=== PATIENT | male | born 1995 | race Caucasian/White ===

== ENCOUNTER 2017-05-24 18:40 | Inpatient (IN) | payer OTHER ==
[~2017-05-24] VITALS: Ht 182.9 cm; Wt 81.6 kg
--- NOTE | 2017-05-24 22:30 | NUR ---
Pre admission note Pt seen in intake office. Pt appears mildly intoxicated but in stable condition. V/S WNL. Policies on medication disposal explained to and understood by patient. No s/s of distress noted at this time. Respirations even and unlabored. Will continue to monitor. Will admit to unit.
[2017-05-24 22:43] VITALS: BP 138/78
--- NOTE | 2017-05-24 22:45 | NUR ---
Admission note Pt is a 22 yo male, A+OX4, presenting to [facility] for Opiate/Benzo dependence. Pt has NKA, is on Full Code status, and on regular diet. Pt is 6'0" in height and 180 LBS in weight. Pt has no medical HX to report. Pt has no family HX to report. Pt has a Primary care provider named Dr. Lai. Pt has been smoking Heroin for 2 years (10 months currently), has reached a rate of 1gm/daily, and last dose was 1gm on 05-24-17 @2000. Pt has been taking Xanax PO for 8 years (10 months currently), has reached a level of 4mg/daily, and last dose was 4mg on 05-21-17. Pt is not taking any home medications. Pt has HX of previous Detox/Rehab for 5 months total in [place], [place] from May 2015- 2015. the patients last time sober was from May 2016- August 2016. Pt has been a cigarette smoker for 8 years and has reached a level of 10/daily. Pt appears mildly intoxicated upon admission but in stable condition. V/S WNL. No s/s of distress noted at this time. Respirations even and unlabored. Will continue to monitor.
[2017-05-24 23:11] LABS: *AMPHETAMINE, URINE NEGATIVE (NEGATIVE); *BARBITURATE, URINE NEGATIVE (NEGATIVE); *CANNABINOID, URINE NEGATIVE (NEGATIVE); *COCCAINE, URINE NEGATIVE (NEGATIVE); *OPIATE, URINE POSITIVE (NEGATIVE); *PHENCYCLIDINE SCREEN,URINE NEGATIVE (NEGATIVE)
[2017-05-24 23:46] LABS: BASOPHILS # (AUTO) 0.3 K/uL (0.0-8.0); BASOPHILS % (AUTO) 1.7 % (0.0-2.0); EOSINOPHILS # (AUTO) 0.1 K/uL (0.0-0.7); EOSINOPHILS % (AUTO) 0.5 % (0.0-7.0); HEMATOCRIT 48.9 % (40-50); HEMOGLOBIN 16.7 G/DL (14.0-18.0); LYMPHOCYTES # (AUTO) 2.3 K/UL (0.8-4.8); LYMPHOCYTES % (AUTO) 14.4 % (20.5-51.5); MEAN CORPUSCULAR HEMOGLOBIN 30.9 UUG (27.0-31.0); MEAN CORPUSCULAR HGB CONC 34 g/dL (32.0-37.0); MEAN CORPUSCULAR VOLUME 90.4 FL (82.0-92.0); MONOCYTES # (AUTO) 1.2 K/UL (0.1-1.30); MONOCYTES % (AUTO) 7.6 % (0.0-11.0); NEUTROPHILS # (AUTO) 11.8 K/UL (1.8-8.9); NEUTROPHILS % (AUTO) 75.8 % (38.5-71.5); PLATELET COUNT (AUTO) 341 K/UL (150-450); RED BLOOD CELL COUNT(AUTO) 5.41 MIL/UL (4.7-6.1); WHITE BLOOD COUNT (AUTO) 15.6 K/UL (4.0-11.2)
[2017-05-24 23:53] LABS: ALANINE AMINOTRANSFERASE 32 U/L (16-63); ALKALINE PHOSPHATASE 91 U/L (50-136); AMYLASE 80 U/L (25-115); ASPARTATE AMINOTRANSFERASE 18 U/L (15-37); BILIRUBIN,TOTAL 0.5 mg/dL (0.2-1.0); CARBON DIOXIDE 31 mmol/L (21-32); CHLORIDE 101 mmol/L (98-107); CREATININE 1.4 mg/dL (0.6-1.3); GLUCOSE 121 mg/dL (74-106); LIPASE 117 U/L (73-393); POTASSIUM 3.6 mmol/L (3.5-5.1); TOTAL PROTEIN, SERUM 8.4 g/dL (6.4-8.2); UREA NITROGEN, BLOOD 15 mg/dL (7-18)
[2017-05-25 00:04] LABS: THYROID STIMULATING HORMONE 0.667 mIU/mL (0.358-3.740)
[2017-05-25 00:12] LABS: ETHANOL < 3 MG/DL (0-0)
[2017-05-25 00:56] VITALS: BP 132/78
[2017-05-25 04:16] VITALS: BP 125/74
--- NOTE | 2017-05-25 06:58 | NUR ---
End of shift note Pt is a 22 yo male, A+OX4, presenting to [facility] for Opiate/Benzo dependence. Pt has NKA, is on Full Code status, and on Regular diet. Pt is on Fall and Seizure precautions. Pt denies any medical HX. Pt is awaiting evaluation from MD in AM for taper medications. Pt slept for a total of 1 HR. Last COWS: 2 and Last CIWA: 2 @0400. No s/s of distress noted at this time. Respirations even and unlabored. Will endorse to day shift nurse.
[2017-05-25 08:00] VITALS: BP 124/70
--- NOTE | 2017-05-25 08:00 | NUR ---
START OF SHIFT: RECEIVED PT A/O X 4.HE IS LAYING IN BED. HE C/O SEVERE ANXIETY AND SWEATS AND STATES HE FEELS LIKE HE IS CRAWLING OUT OF HIS SKIN.CIWA 16. 2MG ATIVAN PO PRN ADMINISTERED. MADE AWARE. ENCOURAGED INCREASED FLUIDS. WILL MONITOR EFFECTIVENESS OF PRN ATIVAN. PT STATES HE WOULD LIKE TO WAIT ON SUBUTEX. COWS 10. WILL CONTINUE TO MONITOR AND OFFER SUPPORT.
--- NOTE | 2017-05-25 09:00 | NUR ---
CIWA 5 . PRN ATIVAN WAS EFFECTIVE. WILL CONTINUE TO MONITOR.
[2017-05-25 12:00] VITALS: BP 129/75
--- NOTE | 2017-05-25 12:15 | NUR ---
PRN 4 MG SUBUTEX SL GIVEN FOR COWS 14. HE REPORTS SWEATS,CHILLS, STOMACH CRAMPS ,ANXIETY,BODY ACHES AND RESTLESSNESS. WILL MONITOR EFFECTIVENESS.
--- NOTE | 2017-05-25 12:45 | NUR ---
PT STATES THE SUBUTEX WAS EFFECTIVE. COWS NOW 9. HE STATES S/S OF W/D HAVE LESSENED. WILL CONTINUE TO MONITOR AND OFFER SUPPORT.
--- NOTE | 2017-05-25 13:45 | NUR ---
1300 MEDS HELD PT IS ASLEEP. RESPIRATIONS EVEN AND UNLABORED.
--- NOTE | 2017-05-25 14:43 | NUR ---
Therapist Visited client in bedroom and encouraged client to come into group today. Client agreed to attend group.
[2017-05-25 16:00] VITALS: BP 135/65
--- NOTE | 2017-05-25 18:55 | NUR ---
END OF SHIFT: PT STARTED ON ATIVAN SUBUTEX TAPER. LAST COWS 8 CIWA 5. HE RESTED AND INCREASED FLUIDS SUGGESTED TODAY. HE C/O BODY ACHES,CHILLS SWEATS AND ANXIETY AND STATES DETOX MEDS ARE EFFECTIVE. PT IS COMPLIANT WITH MEDS. WILL PASS SHIFT REPORT TO ONCOMING NIGHT NURSE.
[2017-05-25 20:00] VITALS: BP 127/65
--- NOTE | 2017-05-25 20:00 | NUR ---
1999 Patient received awake, alert and ambulating to his room # [id number] from [facility] in recreation room. Gait is brisk and steady. Patient responds to nurse's greeting and introduction with a " Hi, what's your name again?" Patient is oriented to person, place, day, date, time and his personal situation. Patient denies any pain or other discomfort at this time and he states that he has been eating his Regular diet meal trays as best he can and he continues to take various fluids ad flavia with no gastric issues thus far. Patient attended [facility] group this evening. Vital signs are: 98.6-97-16 127/65, O2 Sat 99%, COWS 4, CIWA 3. Patient was admitted on 05/24/17 for Heroin and Xanax withdrawal and he is currently on a 5-Day Ativan medication taper and a 5-Day Subutex medication taper, both of which he is apparently tolerating well thus far. Patient is cooperative and verbally appropriate when interacting with nurse, though his overall mood/affect is quiet and withdrawn. No requests for anything voiced at this time. Bed is locked and in lowest position, bed rails are up X 2 and call light on patient's bed.
--- NOTE | 2017-05-25 21:05 | NUR ---
PRN MEDICATION: Prn Benadryl 50 mg p.o. given per request for sleep medication.
--- NOTE | 2017-05-25 21:06 | NUR ---
PRN MEDICATION: Prn Vistaril 25 mg p.o. given per c/o anxiety.
--- NOTE | 2017-05-25 22:06 | NUR ---
REASSESSMENT PRN MEDICATIONS: Patient is sleeping comfortably with eyes closed and respirations quiet, even, unlabored at 12.
--- NOTE | 2017-05-26 | NUR ---
Patient requests to not be awakened for V/S, COWS, CIWA to be done at this time.
--- NOTE | 2017-05-26 04:00 | NUR ---
Patient sleeping soundly and refused to be awakened for V/S, COWS, CIWA to be done at this time
--- NOTE | 2017-05-26 06:30 | NUR ---
0630 Patient slept a total of 6.5 hours and he had 3 voids and no stools. Total intake was 1,855l p.o. Prn medications given noted separately per floor protocol. V/SS afebrile, last COWS 4, last CIWA 3. Patient is presently sleeping comfortably in stable condition with eyes closed and respirations unlabored at 12.
[2017-05-26 07:06] LABS: HEPATITIS B SURFACE AG Negative (Negative)
--- NOTE | 2017-05-26 07:55 | NUR ---
BEGINNING OF SHIFT Patient endorsement report received from shift superintendent caustic cresylate nurse, all pertinent information discussed. Patient is a 22 year old male with admitting Dx:Opiate/BZO dependence. Patient continues on a 5 day Ativan taper and 5 day Subutex taper as ordered and is scheduled to begin day: 2 of taper, will monitor closely. As per shift superintendent caustic cresylate patient received PRN: Benadryl, and Vistaril. Patient slept for 7 hours. Patient received awake, alert and oriented x4, Educated patient regarding plan of care for the day and medication regimen with good verbal understanding. will continue to monitor closely. Safety measures in place. call light kept with in reach, will continue to monitor closely.
[2017-05-26 08:18] VITALS: BP 118/73
[2017-05-26 14:09] VITALS: BP 112/71
[2017-05-26 17:14] VITALS: BP 135/92
--- NOTE | 2017-05-26 19:03 | NUR ---
END OF SHIFT Patient alert and oriented x4, vital signs were stable during shift. Patient compliant with therapeutic plan of care during shift. Patient with admitting Dx: opiate/BZO dependence. Patient continues on day 2 of Ativan and Subutex taper as ordered, well tolerate,d no ASE noted. 0900 assessment patient presented with: c/o chills, restlessness, mild bone and joint aches, fine tremors, irritable, anxiety, goosebump, and barely sweating with cow score of: 11 and ciwas score of: 8; 1300 assessment patient presented with: c/o chills, mild bone and joint aches, fine tremors, irritability, anxiety, with cow score of: 6 and ciwa score of: 6; 1700 assessment patient presented with: heart rate: 103, c/o chills, mild bone and joint aches, fine tremors, irritability, anxiety, with cow score of: 7 and ciwa score of: 6. During shift patient received no PRNs. Patient compliant with plan of care. encouraged to attend group therapies/sessions to learn new coping skills to prevent relapse, noted attending and participating. Patient denies SI/HI. Patient encouraged adequate PO fluid intake as tolerated. Safety measures in place. call light kept with in reach, safety measures in place. will continue to monitor closely. patient endorsed to glass mould cleaner nurse, all pertinent information discussed.
[2017-05-26 20:00] VITALS: BP 128/90
--- NOTE | 2017-05-26 20:00 | NUR ---
1999 Patient received awake, alert and just returning to his room #[id number] from [employer] group in recreation room. Upon seeing nurse, patient states, " Hey, you my nurse again tonight?" Patient is oriented to person, place, day, date, time and his personal situation. Patient denies feeling any pain or other discomforts and he states that he continues to attend [employer] groups, eat his regular diet meal trays, take " lots of vitamin water" with no gastric issues, and follow his therapeutic plan as best he can. Vital signs are: 98.3-100-16 128/90, O2 Sat 99%, COWS 5 , CIWA 4 . No requests for anything voiced at this time. Patient was admitted on 05/24/17 for Heroin and Xanax withdrawal and he is currently on both, a 5-Day Ativan medication taper and a 5-Day Subutex medication taper, which he is apparently tolerating well thus far. Patient is cooperative and verbally appropriate when interacting with nurse though overall mood/affect is quiet/flat. Bed is locked and in lowest position, bed rails are up X 2 and call light on patient's bed within his easy reach.
--- NOTE | 2017-05-27 | NUR ---
Patient is awake and downstairs on hospital patio for smoke break. Unable to do V/S, CIWA assess at this time.
[2017-05-27 04:00] VITALS: BP 118/85
--- NOTE | 2017-05-27 04:00 | NUR ---
V/S: 98-92-14 118/85, O2 Sat 99%. Patient too sleepy to do [place], CIMARTHA at this time.
--- NOTE | 2017-05-27 06:30 | NUR ---
0630 Patient slept a total of 5 hours and he had 3 voids and 1 stools. Total intake was 1,047 ml p.o. No prn medications given this shift. V/SS afebrile, last COWS 5 and CIWA 4. Patient presently resting comfortably in stable condition with eyes closed and respirations unlabored at 14.
--- NOTE | 2017-05-27 07:39 | NUR ---
BEGINNING OF SHIFT Patient endorsement report received from public works supervisor nurse, all pertinent information discussed. Patient is a 22 year old male with admitting Dx:Opiate/BZO dependence. Patient continues on a 5 day Ativan taper and 5 day Subutex taper as ordered and is scheduled to begin day: 3 of taper, will monitor closely. As per public works supervisor patient received no PRNs. Patient slept for 5 hours. Patient received awake, alert and oriented x4, Educated patient regarding plan of care for the day and medication regimen with good verbal understanding. will continue to monitor closely. Safety measures in place. call light kept with in reach, will continue to monitor closely.
[2017-05-27 08:16] VITALS: BP 123/71
[2017-05-27 12:31] VITALS: BP 127/84
--- NOTE | 2017-05-27 14:06 | NUR ---
Therapist encouraged client to attend group today to meet others and engage in his recovery. Client agreed to attend group.
--- NOTE | 2017-05-27 14:16 | NUR ---
PRN VISTARIL Patient reports increase in anxiety, provided patient with non pharmacological interventions with no relied, administered Vistaril PO as ordered, will monitor effectiveness of medication.
--- NOTE | 2017-05-27 15:16 | NUR ---
VISTARIL REASSESSMENT Patient reports medication effective feels less anxious, medication effective, will continue to monitor.
[2017-05-27 17:16] VITALS: BP 125/63
--- NOTE | 2017-05-27 18:50 | NUR ---
END OF SHIFT Patient alert and oriented x4, vital signs were stable during shift. Patient compliant with therapeutic plan of care during shift. Patient with admitting Dx: opiate/BZO dependence. Patient continues on day 3 of Ativan and Subutex taper as ordered, well tolerate,d no ASE noted. 0900 assessment patient presented with: c/o chills, dilated pupils, mild bone and joint aches, tremors that can be felt but not seen, yawning, mild anxiety and barely sweating with cow score of: 6 and ciwa score of: 3; 1300 assessment patient presented with: heart rate of 96, c/o chills, mild bone and joint aches, tremors that can be felt but not seen, and mild anxiety with cow score of: 5 and ciwa score of: 3; 1700 assessment patient presented with: heart rate of 102, c/o chills, mild bone and joint aches, tremors that can be felt but not seen, mild anxiety with cow score of: 6 and ciwa score of: 3. During shift patient received PRN: Vistaril as ordered, medication effective one hour post administration. Patient compliant with plan of care. encouraged to attend group therapies/sessions to learn new coping skills to prevent relapse, noted attending and participating. Patient denies SI/HI. Patient encouraged adequate PO fluid intake as tolerated. Safety measures in place. call light kept with in reach, safety measures in place. will continue to monitor closely. patient endorsed to night auditor nurse, all pertinent information discussed.
[2017-05-27 20:00] VITALS: BP 134/86
--- NOTE | 2017-05-27 20:05 | NUR ---
Start of Shift Notes Received 23 y/o male px. Admitted on 05/24/2017 for opiate/BZO dependence. Patient alert and oriented x4. Patient denies SI/HI. Px on Full Code, NKA, on regular diet. During rounds at 1930, px reported of heightened anxiety and wants to have petra sleep tonight. Encouraged adequate PO fluid intake as tolerated. Safety measures in place. Call light kept within reach, safety measures in place. We'll continue to monitor.
--- NOTE | 2017-05-27 20:30 | NUR ---
PRN Vistaril Px requested pill to help him sleep. Px verbalized that his anxiety is heightened and he had only 3 hrs sleep last night and he has been sleep deprived. Vistaril 25mg/tab, 1 tab given PO as PRN med. We'll continue to monitor.
[2017-05-28] VITALS: BP 127/79
--- NOTE | 2017-05-28 | NUR ---
COWS and CIWA deferred COWS and CIWA deferred due to the px is sleeping, to assess if the px is awake per doctor's order. Respirations are even and unlabored. We'll continue to monitor.
[2017-05-28 04:00] VITALS: BP 127/80
--- NOTE | 2017-05-28 07:14 | NUR ---
End of Shift Notes 23 y/o male px. Admitted on 05/24/2017 for opiate/BZO dependence. Patient alert and oriented x4, vital signs were stable during shift. Patient denies SI/HI. Px on Full Code, NKA, on regular diet. Px on 5 day Ativan and Subutex taper. During rounds at 1930, px reported of heightened anxiety and wants to have petra sleep tonight. Vistaril 25mg/tab, 1 tab given PO as PRN med. Encouraged adequate PO fluid intake as tolerated. Oral intake of 1,600 ml, voided 2x, no BM. Slept for 7 hrs. Last COWS 6, CIWA 4. Safety measures in place. Call light kept within reach. We'll continue to monitor.
--- NOTE | 2017-05-28 07:22 | NUR ---
BEGINNING OF SHIFT Patient endorsement report received from underwriter nurse, all pertinent information discussed. Patient is a 22 year old male with admitting Dx:Opiate/BZO dependence. Patient continues on a 5 day Ativan taper and 5 day Subutex taper as ordered and is scheduled to begin day: 4 of taper, will monitor closely. As per underwriter patient received PRN:Vistaril, medication effective as per underwriter, patient slept for 7 hours. patient with last cow score of; 6 and last ciwa score of: 4. Patient received awake, alert and oriented x4, Educated patient regarding plan of care for the day and medication regimen with good verbal understanding. will continue to monitor closely. Safety measures in place. call light kept with in reach, will continue to monitor closely.
[2017-05-28 08:24] VITALS: BP 121/85
[2017-05-28 12:30] VITALS: BP 138/80
--- NOTE | 2017-05-28 12:45 | NUR ---
ONE TIME ATIVAN Per MD orders patient to receive one time dose of Ativan 1 mg Po, medication administered as ordered patient presented with: tremors that can be felt but not seen, moderate anxiety, agitated with ciwa score of: 8, will monitor effectiveness of medication.
[2017-05-28 13:07] LABS: EOSINOPHILS # (AUTO) 0.1 K/uL (0.0-0.7); HEMATOCRIT 44.4 % (36.7-47.1); LYMPHOCYTES # (AUTO) 1.8 K/uL (20.0-40.0); NEUTROPHILS # (AUTO) 7.8 K/uL (1.8-8.9)
[2017-05-28 13:18] LABS: BASOPHILS % (AUTO) 0.5 % (0.0-2.0); EOSINOPHILS % (AUTO) 1.1 % (0.0-7.0); HEMOGLOBIN 15.5 g/dL (12.5-16.3); LYMPHOCYTES % (AUTO) 16.9 % (20.5-51.5); MEAN CORPUSCULAR HEMOGLOBIN 31.2 uug (23.8-33.4); MEAN CORPUSCULAR HGB CONC 35 g/dL (32.5-36.3); MEAN CORPUSCULAR VOLUME 89.6 fL (73.0-96.2); MONOCYTES % (AUTO) 9.7 % (0.0-11.0); NEUTROPHILS % (AUTO) 71.8 % (38.5-71.5); PLATELET COUNT (AUTO) 282 K/uL (152-348); RED BLOOD CELL COUNT(AUTO) 4.95 MIL/uL (4.06-5.63)
[2017-05-28 13:21] LABS: WHITE BLOOD COUNT (AUTO) 10.8 K/uL (3.6-10.2)
[2017-05-28 13:41] LABS: CREATININE 1.3 mg/dL (0.6-1.3); POTASSIUM 3.7 mmol/L (3.5-5.1)
--- NOTE | 2017-05-28 13:45 | NUR ---
ATIVAN REASSESSMENT patient reports medication effective, reassessment completed noted with, tremors that can be felt but not seen, mild anxiety and mild agitation with ciwa score of: 5, will continue to monitor.
[2017-05-28 16:00] VITALS: BP 120/79
--- NOTE | 2017-05-28 17:13 | NUR ---
Client was prompted by therapist to attend daily group session. Client related that he would attend.
--- NOTE | 2017-05-28 17:50 | NUR ---
PRN CLONIDINE/VISTARIL Patient c/o increase anxiety, and feeling agitated patient provided with non pharmacological interventions with no relief, patient administered clonidine as ordered and Vistaril as ordered. bp at time of administration: 138/80 heart rate of: 95. Will continue to monitor for effectiveness.
--- NOTE | 2017-05-28 18:50 | NUR ---
CLONIDINE/VISTARIL REASSESSMENT Patient reports medication effective, feels less anxious and less agitated, vital signs WNL. medication effective, will continue to monitor.
--- NOTE | 2017-05-28 19:03 | NUR ---
END OF SHIFT Patient alert and oriented x4, vital signs were stable during shift. Patient compliant with therapeutic plan of care during shift. Patient with admitting Dx: opiate/BZO dependence. Patient continues on day 4 of Ativan and Subutex taper as ordered, well tolerate,d no ASE noted. During shift patient received a one time dose of Ativan 1mg Po as ordered by MD at 1245, well tolerated, no ASE noted. 0900 assessment patient presented with: heart rate of 81, c/o chills, mild bone and joint aches, tremors that can be felt but not seen, mild anxiety with cow score of: 5; 1300 assessment patient presented with: tremors that can be felt but not seen, moderate anxiety, agitated, heart rate of 93, c/o chills, mild bone and joint aches, tremors that can be felt but not seen, irritable, and anxiety with cow score of: 8; 1700 assessment patient presented with: tremors that can be felt but not seen, moderate anxiety, agitated, heart rate of 108, c/o chills, mild bone and joint aches, tremors that can be felt but not seen, irritable, and anxiety with cow score of: 7 and ciwa score of: 8. During shift patient received PRN: Vistaril and clonidine as ordered, medication effective one hour post administration. Patient compliant with plan of care. encouraged to attend group therapies/sessions to learn new coping skills to prevent relapse, noted attending and participating. Patient denies SI/HI. Patient encouraged adequate PO fluid intake as tolerated. Safety measures in place. call light kept with in reach, safety measures in place. will continue to monitor closely. patient endorsed to welder 2nd shift nurse, all pertinent information discussed.
[2017-05-28 20:00] VITALS: BP 94/65
--- NOTE | 2017-05-28 20:00 | NUR ---
Start of Shift Patient is a 22-year old, male, admitted for Opiate and Benzo dependence. Patient with NKA, is Full Code and on Regular Diet. With no reported medical history. Pt placed on Ativan and Subutex tapers, both ending on 05/29/17. Pt is AAOx3 and with no anxiety at this time. No SOB noted, not in respi distress. Pt is ambulatory with steady gait, with no skin issues. Fall, universal, seizure and safety prec in place. Call light within reach. Latest COWS=5, CIWA=4. Will continue to monitor.
[2017-05-29] VITALS: BP_SYST 105; BP_SYST 122; BP_DIAS 71; BP_DIAS 80
--- NOTE | 2017-05-29 04:10 | NUR ---
RN note Vital Signs and CIWA deferred Pt refused vital signs check and COWS/CIWA assessment despite explanation of risks and benefits. RR=16.
--- NOTE | 2017-05-29 07:09 | NUR ---
End of Shift Patient is a 22-year old, male, admitted for Opiate and Benzo dependence. Patient with NKA, is Full Code and on Regular Diet. With no reported medical history. Pt placed on Ativan and Subutex tapers, both ending on 05/29/17. Pt is AAOx3 and with no anxiety at this time. No SOB noted, not in respi distress. Pt is ambulatory with steady gait, with no skin issues. Fall, universal, seizure and safety prec in place. Call light within reach. Latest COWS=6, CIWA=4, slept for 5 hours. Endorsed to AM shift nurse for continuity of care.
--- NOTE | 2017-05-29 07:30 | NUR ---
Start of Shift Report from the night nurse: Pt is a 22 y/o male here for Opiate dependence r/t heroin 1g daily for 2 years and Xanax 4mg po daily for 8 years; 5 day Ativan and Subutex tapers ordered with the last doses scheduled this morning. Pt is a full code, regular diet, NKA, fall and seizure precautions ordered. Pt denies past medical Hx, No hx of sz. Pt has a hx of multiple relapses. V/S stable. Skin is intact. No PRNs given last night. No abnormal labs or new orders endorsed to me. Last CIWA 4 COWS 6. Pt is asleep in room. Will cont. to monitor the pt.
[2017-05-29 08:00] VITALS: BP 136/84
--- NOTE | 2017-05-29 11:10 | NUR ---
New Orders-Seroquel, PRN Medication Administration Pt is in room with agitations and very irritable with anxiety; Dr. Arguelles is aware and new or for PRN Seroquel 25mg PO given as ordered. Will reassess in 1H.
[2017-05-29 12:00] VITALS: BP 131/91
--- NOTE | 2017-05-29 12:00 | NUR ---
Reassessment Pt is getting ready to each lunch and states that he is feeling better and with less anxiety; Seroquel is effective. Will cont. to monitor the pt.
--- NOTE | 2017-05-29 15:15 | NUR ---
Non-Medication Administration Pt refused the Clonidine 0.1mg and the gabapentin scheduled at 1500H.
[2017-05-29 16:00] VITALS: BP 151/86
--- NOTE | 2017-05-29 16:31 | NUR ---
MD Yoko Ponce states that the pt is very upset and frustrated with the d/c plan of where he is to be discharged to and states that if he "gets discharged to that facility, then [he] should have just overdose and commit suicide" and states that "I should have just used and OD before coming here for treatment". Facility Jennifer from social insurance adviser states that the statement reliable. Dr. Bucio notified that of the pt's statement and states that if there is no acts of suicide to then monitor the pt.
--- NOTE | 2017-05-29 16:48 | NUR ---
PRN Medication Administration Pt is sitting in his room with the Clinical therapist "Deshaun" present. I assessed pt's current feelings and psychological state of mind by asking if he feels like he wants to hurt is self in any kind of way and the states, "no, why would you ask me that"? I explained to the pt that since I am liable for his well being in this facility that I will be notified by any staff here if they see or hear that you are a potential risk of injury. I asked the pt a second time if he feels like he wants to hurt his self in any kind of way or feels as if he wants to commit suicide and he states, "No, I don't." The Clinical therapist "Deshaun" is aware of the situations and a witness. I will cont. to monitor the pt. Addendum: 05/29/17 at 1659 by BRUNA RENTERIA RN PRN Seroquel 25mg given as ordered to help the pt's frustration, anxiety and irritability. Will reassess in ! hour.
--- NOTE | 2017-05-29 17:48 | NUR ---
Reassessment Pt is getting ready to go smoke in the patio and is relaxed; PRN Seroquel is effective. Will cont. to monitor the pt.
--- NOTE | 2017-05-29 19:30 | NUR ---
START OF SHIFT Pt is a 22 y/o male admitted on 05/24/17 for benzo and opiate dependence. Pt was dependent on heroin (inhalation) 1 g daily for 2 years and xanax PO 4 mg daily for 8 years. Pt is full code, NKA, regular diet, and seizure/fall precautions. No reported history of seizures or other PMH. Pt is on a 5 day Ativan and 5 day Subutex taper that started on 05/25/17, but Ativan and Subutex got extended per orders until 05/30/17 d/t continuing withdrawal symptoms today. Upon assessment pt was walking around the hallway and presents with increased HR, tremors, anxiety, agitation, restlessness and pain 4/10 in lower back and legs r/t withdrawal. Respirations 18, even and unlabored. Denies N/V/D. Denies chest pain or SOB. Medications due. Safety measures in place. Call light within reach. Will continue to monitor.
--- NOTE | 2017-05-29 19:34 | NUR ---
End of Shift Report to the night nurse: Pt is a 22 y/o male here for Opiate dependence r/t heroin 1g daily for 2 years and Xanax 4mg po daily for 8 years; 5 day Ativan and Subutex tapers ordered with the last doses scheduled this morning. Pt is a full code, regular diet, NKA, fall and seizure precautions ordered. Pt denies past medical Hx, No hx of sz. Pt has a hx of multiple relapses. V/S stable. Skin is intact. New orders for Ativan and Subutex to be given at 1500 and 2100 s/p Dr. Joseph evaluation. Pt had episodes of moderate to severe anxiety and Dr. Arguelles notified with New order for Seroquel 25mg PO Q4H PRN and given twice at 1107am and 1645 pm today and is effective during my shift.
[2017-05-29 20:00] VITALS: BP 135/86
--- NOTE | 2017-05-29 21:45 | NUR ---
PRN SEROQUEL 25 MG ADMINISTRATION Pt appears agitated and restless. Respirations 18, even and unlabored. Safety measures in place. Call light within reach. Will continue to monitor.
--- NOTE | 2017-05-29 22:45 | NUR ---
PRN SEROQUEL REASSESSMENT Pt appears less agitated/restless. Pt is awake and just came back from smoking break. Respirations 16, even and unlabored. Safety measures in place. Call light within reach. Will continue to monitor.
[2017-05-30] VITALS: BP 122/80
--- NOTE | 2017-05-30 04:00 | NUR ---
VITALS REFUSED AND COW/CIWA DEFERRED Pt is laying in bed with eyes closed. Pt refused vitals and COW/CIWA deferred d/t pt not fully awake, to be assessed when awake per orders. Respirations 18, even and unlabored. Safety measures in place. Call light within reach. Will continue to monitor.
--- NOTE | 2017-05-30 07:23 | NUR ---
END OF SHIFT Pt is a 22 y/o male admitted on 05/24/17 for benzo and opiate dependence. Pt was dependent on heroin (inhalation) 1 g daily for 2 years and xanax PO 4 mg daily for 8 years. Pt is full code, NKA, regular diet, and seizure/fall precautions. No reported history of seizures or other PMH. Pt is on a 6 day Ativan and 6 day Subutex taper (extended) that started on 05/25/17, tolerating well. Upon assessment pt was walking around the hallway and presents with increased HR, tremors, anxiety, agitation, restlessness and pain 4/10 in lower back and legs r/t withdrawal. Scheduled medications and PRN Seroquel administered, effective in S/S of withdrawal AEB COW/CIWA lowered from COW 7 CIWA 7 to COW 3 CIWA 3. Pt slept 6 hours. Intake 1151 ml, voids x 1, stool x 1. Safety measures in place. Call light within reach. Pts needs have been met. Endorsed to day shift nurse.
[2017-05-30 08:04] VITALS: BP 121/85
--- NOTE | 2017-05-30 08:10 | NUR ---
START OF SHIFT: RECEIVED PT A/O X 4. HE PRESENTS WITH IRRITABLE MOOD AND CONGRUENT AFFECT. LAST DOSE OF SUBUTEX ADMINISTERED. COWS 4 CIWA 3. PT STATES THINGS ARE NOT GOING HIS WAY REGARDING DISCHARGE LOCATION. OFFERED SUPPORT. ENCOURAGED PT TO TALK WITH THERAPIST AND GRADER GREEN MEAT. ENCOURAGED GROUP ATTENDANCE TO IMPROVE COPING SKILLS AND PREVENT RELAPSE. WILL CONTINUE TO MONITOR.
--- NOTE | 2017-05-30 10:25 | NUR ---
PT REPORTS AGITATION AND WANTS SEROQUEL PRN. ADMINISTERED SEROQUEL PRN ORDERED. WILL MONITOR EFFECTIVENESS.
--- NOTE | 2017-05-30 11:25 | NUR ---
PT STATES SEROQUEL WAS EFFECTIVE. HE IS LESS AGITATED.
[2017-05-30 12:00] VITALS: BP 123/76
--- NOTE | 2017-05-30 12:10 | NUR ---
ADMINISTERED ATIVNA 1 MG PO X 1 PER MD. ILIANA 3. WILL MONITOR EFFECTIVENESS.
[2017-05-30] MEDS ORDERED: CLON0.1T14 PO ×2 (13:51→18:10)
[2017-05-30] MEDS ORDERED: DICY20TA28 PO ×2 (13:51→18:10)
[2017-05-30] MEDS ORDERED: IBUP-1955 PO ×2 (13:51→18:10)
[2017-05-30] MEDS ORDERED: GABA-536 PO ×2 (13:51→18:10)
[2017-05-30] MEDS ORDERED: BACL20TA PO ×2 (13:51→18:10)
[2017-05-30] MEDS ORDERED: QUET100T PO (13:51)
[2017-05-30] MEDS ORDERED: HYDR-3895 PO ×2 (13:51→18:10)
--- NOTE | 2017-05-30 15:00 | NUR ---
PT STATES HE FEELS ANXIOUS AND AGITATED AND WANTS PRN SEROQUEL. ADMINISTERED ORDERED. WILL MONITOR EFFECTIVENESS OF PRN MED.
[2017-05-30 16:00] VITALS: BP 120/79
--- NOTE | 2017-05-30 16:00 | NUR ---
PT STATES SEROQUEL WAS EFFECTIVE AND HE FEELS LESS ANXIOUS AND AGITATED.
--- NOTE | 2017-05-30 16:19 | NUR ---
PT STATES ATIVAN WAS EFFECTIVE CIWA NOW 2. Addendum: 05/30/17 at 1639 by DINORA SARAH RN NOTE MEANT FOR 1310 TO REASSESS ATIVAN ONE TIME DOSE.
--- NOTE | 2017-05-30 18:48 | NUR ---
END OF SHIFT: PT COMPLETED SUBUTEX TAPER TODAY. ONE TIME DOSE OF ATIVAN GIVEN AT NOON AND EFFECTIVE. LAST COWS 4 CIWA 2. SEROQUEL PO PRN GIVEN TWICE AND EFFECTIVE FOR ANXIETY AND AGITATION. OFFERED SUPPORT. DISCHARGE PLANNING IN PROGRESS FOR 05/31. WILL PASS SHIFT REPORT TO ONCOMING NIGHT NURSE.
--- NOTE | 2017-05-30 19:30 | NUR ---
START OF SHIFT Pt is a 22 y/o male admitted on 05/24/17 for benzo and opiate dependence. Pt was dependent on heroin (inhalation) 1 g daily for 2 years and xanax PO 4 mg daily for 8 years. Pt is full code, NKA, regular diet, and seizure/fall precautions. No reported history of seizures or other PMH. Pt was on a 6 day extended Ativan and Subutex taper, discontinued today. Pt is scheduled to be discharged tomorrow. Upon assessment pt presents with anxiety, agitation, mild restlessness, increased HR, and mild generalized soreness. Respirations 18, even and unlabored. Denies N/V/D. Denies chest pain or SOB. Medications due. Safety measures in place. Call light within reach. Will continue to monitor.
[2017-05-30 20:00] VITALS: BP 126/80
--- NOTE | 2017-05-30 20:04 | NUR ---
PRN SEROQUEL AND ROBAXIN ADMINISTRATION Pt appears agitated and restless. Pt reports having generalized body "soreness." Safety measures in place. Call light within reach. Will continue to monitor.
--- NOTE | 2017-05-30 21:04 | NUR ---
PRN SEROQUEL AND ROBAXIN REASSESSMENT Pt has improvement in agitation and restlessness. Pt reports body aches have ceased. Safety measures in place. Call light within reach. Will continue to monitor.
--- NOTE | 2017-05-31 | NUR ---
VITALS REFUSED AND COW/CIWA DEFERRED Pt is laying in bed with eyes closed, refused vitals, COW/CIWA deferred until pt is awake per orders. Respirations 18, even and unlabored. Safety measures in place. Call light within reach. Will continue to monitor.
[2017-05-31 04:00] VITALS: BP 133/74
--- NOTE | 2017-05-31 04:09 | NUR ---
PRN SEROQUEL ADMINISTRATION Pt appears agitated, anxious, and slightly restless. Safety measures in place. Call light within reach. Will continue to monitor.
--- NOTE | 2017-05-31 05:09 | NUR ---
PRN SEROQUEL REASSESSMENT Pt is laying in bed with eyes closed. Respirations 18, even and unlabored. Safety measures in place. Call light within reach. Will continue to monitor.
--- NOTE | 2017-05-31 07:24 | NUR ---
END OF SHIFT Pt is a 22 y/o male admitted on 05/24/17 for benzo and opiate dependence. Pt was dependent on heroin (inhalation) 1 g daily for 2 years and xanax PO 4 mg daily for 8 years. Pt is full code, NKA, regular diet, and seizure/fall precautions. No reported history of seizures or other PMH. Pt was on a 6 day extended Ativan and Subutex taper, discontinued 05/30/17. Last dose of Ativan at 1200 on 05/30/17. Pt is scheduled to be discharged today. Pt presented with anxiety, agitation, mild restlessness, increased HR, and mild generalized soreness. Scheduled medications and PRN Seroquel x 2 and Robaxin, effective in S/S of withdrawal AEB COW 5 CIWA 3 lowered to COW 4 CIWA 2 during shift and as verbalized by pt. Pt slept 8 hours. Intake 355 ml, voids x 2, stool x 0. Safety measures in place. Call light within reach. Pts needs have been met. Endorsed to day shift nurse.
--- NOTE | 2017-05-31 07:46 | NUR ---
START OF SHIFT NOTE: Received report from shank faker nurse. Pt is a 22 y/o male admitted on 05/24/17 for benzo and opiate dependence. To be discharged this AM. Pt is alert and orient X4. Color good, skin warm and dry. Respirations even and unlabored. Safety precautions observed. Call light within reach.
--- NOTE | 2017-05-31 08:44 | NUR ---
VSS Discharge papers signed. No home meds.
[2017-05-31 08:47] VITALS: BP 120/70
--- NOTE | 2017-05-31 09:40 | NUR ---
Rcvd report from dayssdft nurse for continuity of care. Client is in group activity at this time, he is a/ox4. Will continue to monitor.
--- NOTE | 2017-05-31 09:44 | NUR ---
PRN Seroquel 25mg PO administered for agitation, manifested by pacing in room, flushed face and hand-wringing. Call light within reach. Will continue to monitor.
--- NOTE | 2017-05-31 10:44 | NUR ---
Reassessment PRN Seroquel 25mg PO effective, client able to participate in group activities. Will continue to monitor.
--- NOTE | 2017-05-31 12:04 | NUR ---
One time dose Ativan 1mg PO administered for agitation, manifested by pacing in room, flushed face, increased P 111, and hand-wringing. CIWA 10. Call light within reach. Will continue to monitor.
[2017-05-31 12:28] VITALS: BP 128/79
--- NOTE | 2017-05-31 13:04 | NUR ---
Reassessment One time dose Ativan 1mg PO noted effective, client appears calm, he is watching TV. CIWA 6. Call light within reach. Will continue to monitor.
--- NOTE | 2017-05-31 14:47 | NUR ---
PRN Seroquel 25mg PO administered for agitation, manifested by flushed face and hand-wringing. Call light within reach. Will continue to monitor.
--- NOTE | 2017-05-31 15:47 | NUR ---
Reassessment PRN Seroquel 25mg PO effective, client able to converse with peers, he stated, "I feel much better." Will continue to monitor.
[2017-05-31 16:55] VITALS: BP 127/77
--- NOTE | 2017-05-31 19:30 | NUR ---
START OF SHIFT Pt is a 22 y/o male, admitted for Heroin and Xanax dependency.. He has completed Ativan/Subutex taper, tolerated well. He is scheduled for discharge tomorrow. Client is compliant with medications and care. PO fluid intake encouraged as tolerated. No hx of of withdrawal-induced seizures, he is on seizure precautions. NKA, he is full code, Regular diet. All safety measures in place,bed is locked in the lowest position with side rails x 2 . Call light within reach.Will continue to monitor.
--- NOTE | 2017-05-31 19:30 | NUR ---
END OF SHIFT Endorsed client to incoming nurse, client is a 22 y/o male, admitted to [facility] for withdrawal from heroin and alprazolam. He completed an extended taper of Ativan/Subutex taper, tolerated well. He is schedule for discharge tomorrow. One time dose Ativan for CIWA 10, noted effective. PRN Seroquel 25mg PO for agitation x 2 , noted effective. Client is compliant with group theapy. Adequate PO fluid intake 2700mL, void x 6, stool x 1. He denies any hx of of withdrawal-induced seizures, he is on seizure precautions. He reports of allergy to cat dander, he is full code, Regular diet. Side rails x 2 up/padded. Call light within reach.
[2017-05-31 20:00] VITALS: BP 133/78
--- NOTE | 2017-06-01 | NUR ---
V/S REFUSED AND COWS/CIWA DEFERRED Pt is resting in bed with eyes closed, refused V/S, COWS/CIWA deferred d/t sleep. Respirations 16, even and unlabored. Safety measures in place. Call light within reach. Will continue to monitor.
--- NOTE | 2017-06-01 06:44 | NUR ---
END OF SHIFT Pt is a 22 y/o male, admitted for Heroin and Xanax dependency.. He has completed Ativan/Subutex taper, tolerated well. He is schedule for discharge today. Client is compliant with medications and care. PO fluid intake encouraged as tolerated. No hx of of withdrawal-induced seizures, he is on seizure precautions. NKA, he is full code, Regular diet.No PRN meds given this shift.Pt slept 8 hrs, fluid intake was 1800 mls, voided x 4, stool x 1. Last COWS/CIWA =3. All safety measures in place,bed is locked in the lowest position with side rails x 2 . Call light within reach.Will continue to monitor.
--- NOTE | 2017-06-01 07:34 | NUR ---
START OF SHIFT NOTE: Received report from plastics fabricator or welder nurse. Pt is a 22 y/o male admitted on 05/24/17 for benzo and opiate dependence. To be discharged this AM. Pt is alert and orient X4. Color good, skin warm and dry. Respirations even and unlabored. Safety precautions observed. Call light within reach.
[2017-06-01 08:01] VITALS: BP 110/68
--- NOTE | 2017-06-01 08:25 | NUR ---
VSS Pt has refused all AM meds. He states "I feel good and don't need them." Discharge papers signed. No home medications.
--- NOTE | 2017-06-01 09:50 | NUR ---
Pt discharged in stable condition with all belongings and valuables. No home meds. Denies HI/SI. To [facility] via [facility] private car.
== END 2017-06-01 10:19 | disposition home or self-care (01) | DRG 895 ==
LOC: SRC 21:18
PROVIDERS: ADMIT Internal Medicine; ATTEND Internal Medicine
PROC: HZ2ZZZZ Detoxification Services for Substance Abuse Treatment (ICD-10-PCS; principal; 2017-05-24)
PROC: HZ41ZZZ Group Counseling for Substance Abuse Treatment, Behavioral (ICD-10-PCS; 2017-05-27)
PROC: HZ31ZZZ Individual Counseling for Substance Abuse Treatment, Behavioral (ICD-10-PCS; 2017-05-27)
DX: F13.232 Sedative, hypnotic or anxiolytic dependence with withdrawal with perceptual disturbance (principal); N17.9 Acute kidney failure, unspecified; R45.851 Suicidal ideations; F11.23 Opioid dependence with withdrawal; E86.0 Dehydration; F17.210 Nicotine dependence, cigarettes, uncomplicated; Z91.89 Other specified personal risk factors, not elsewhere classified; G47.00 Insomnia, unspecified; F15.10 Other stimulant abuse, uncomplicated; F41.9 Anxiety disorder, unspecified; D72.823 Leukemoid reaction
CPT/HCPCS: 36415; 70030-TC; 80307; 80361; 83690; 83735; 84443; 85025; 86592; 86705; 86803; 87340; A4663; G0480; Q0163